=== PATIENT | female | born 1955 | race Asian ===

== ENCOUNTER 2017-03-05 16:09 | Emergency (ER) | payer BC ==
[~2017-03-05] VITALS: Ht 157.5 cm; Wt 68.9 kg
[~2017-03-05 16:09] MED LIST: ATEN25TA PO; CIPR500T3 PO; DILT60CA PO; METF500T4 PO; METR500T PO; OXYC5TAB3 PO
[2017-03-05 16:14] VITALS: BP 156/93
[2017-03-05] MEDS ORDERED: PHENAZOPYRIDINE 200 MG TABLET PO ONE (16:30)
[2017-03-05 17:00] LABS: HEMATOCRIT 43.7 % (34.6-47.8); HEMOGLOBIN 14.3 g/dL (11.7-16.4); WHITE BLOOD COUNT 11.5 x10^3/uL (3.4-10)
[2017-03-05] MEDS ORDERED: SODIUM CHLORIDE FLUSH 10ML SYR IVF ONE (17:00)
[2017-03-05] MEDS ORDERED: CEFTRIAXONE PMX 1GM/50ML 50 ML IV ONE (17:00)
[2017-03-05 17:10] LABS: BLOOD UREA NITROGEN 14 mg/dL (7-18)
[2017-03-05] MEDS ORDERED: PHENAZOPYRIDINE 200 MG TABLET ONE (17:18)
[2017-03-05] MEDS ORDERED: CEFTRIAXONE 1,000 MG ONE (17:28)
[2017-03-05] MEDS ORDERED: CEFTRIAXONE 1,000 MG IM ONE (17:30)
== END 2017-03-05 17:56 | disposition home or self-care (01) ==
LOC: ED 17:26
DX: N10 Acute pyelonephritis (principal); I10 Essential (primary) hypertension; E11.9 Type 2 diabetes mellitus without complications
CPT/HCPCS: 36415; 80048; 81001; 82040; 85025; 87077; 87086; 87186; 96372; 99284; J0696